=== PATIENT | female | born 1940 | race Caucasian/White ===

== ENCOUNTER 2017-05-26 17:15 | Emergency (ER) | payer MEDICARE, BC ==
[~2017-05-26 17:15] MED LIST: Acetaminophen/HYDROcodone 325-5 MG Tab PO ONE
--- NOTE | 2017-05-26 18:11 | EDM.PDOC ---
ED HPI GENERAL MEDICAL PROBLEM - General Chief Complaint: Lower Extremity Injury/Pain Stated Complaint: left ankle injury Time Seen by Provider: 05/26/17 17:50 Source of Information: Reports: Patient History Limitations: Reports: No Limitations - History of Present Illness INITIAL COMMENTS - FREE TEXT/NARRATIVE: Stepped off the edge of the sidewalk and fell and hurt her left ankle. Swelling note to the lateral malleolus. Some bruising noted to the area. Good sensation noted to toes and foot. No other injury noted. Hasn't been able to bear weight on it since it happened. Onset: Today Location: Reports: Lower Extremity, Left - Related Data Allergies Allergy/AdvReac Type Severity Reaction Status Date / Time ciprofloxacin [From Cipro] Allergy Intermediate Lightheaded Verified 01/21/16 15 :16 ness ciprofloxacin HCl Allergy Lightheaded Verified 01/21/16 15:16 [From Cipro] ness Home Meds: Home Meds Atenolol 12.5 mg PO BID 02/23/15 [History] Levothyroxine [Sythroid] 100 mcg PO DAILY 02/23/15 [History] Lisinopril [Zestril] 10 mg PO BID 02/23/15 [History] NIFEdipine [Nifedipine ER] 30 mg PO DAILY 02/23/15 [History] atorvaSTATin [Lipitor] 10 mg PO DAILY 02/23/15 [History] metFORMIN [Glucophage] 1,000 mg PO BIDMEALS 02/23/15 [History] Aspirin [Adult Low Dose Aspirin EC] 81 mg PO DAILY 01/19/16 [History] Cholecalciferol (Vitamin D3) [Vitamin D] 2,000 unit PO DAILY 01/19/16 [History] Clopidogrel Bisulfate [Clopidogrel] 75 mg PO DAILY 01/19/16 [History] Insulin Detemir [Levemir Flextouch] 14 units SUBCUT QAM 01/19/16 [History] Insulin Detemir [Levemir Flextouch] 16 units SUBCUT QPM 01/19/16 [History] Lisinopril [Lisinopril] 5 mg PO QPM 01/19/16 [History] Lutein/Minerals/Vit A,C & E [Ocuvite] 1 each PO DAILY 01/19/16 [History] Past Medical History Cardiovascular History: Reports: High Cholesterol, Hypertension Endocrine/Metabolic History: Reports: Diabetes, Type II, Hypothyroidism Social & Family History - Tobacco Use Smoking Status *Q: Former Smoker Years of Tobacco use: 30 Used Tobacco, but Quit: Yes Month Tobacco Last Used: april Second Hand Smoke Exposure: No - Alcohol Use Days Per Week of Alcohol Use: 0 - Recreational Drug Use Recreational Drug Use: No - Living Situation & Occupation Living situation: Reports: , with Family Occupation: Retired Review of Systems - Review of Systems Review Of Systems: See Below Constitutional: Reports: No Symptoms Respiratory: Reports: No Symptoms Cardiovascular: Reports: No Symptoms GI/Abdominal: Reports: No Symptoms Musculoskeletal: Reports: Other (left lateral ankle pain) Skin: Reports: Bruising Neurological: Reports: No Symptoms ED EXAM, GENERAL - Physical Exam Exam: See Below Exam Limited By: No Limitations General Appearance: Alert, WD/WN, Moderate Distress Respiratory/Chest: No Respiratory Distress, Lungs Clear Cardiovascular: Regular Rate, Rhythm GI/Abdominal: Normal Bowel Sounds, Soft Extremities: Other (left ankle is swollen and tender. swelling is at the lateral malleous. Good sensation noted distally with good pulse. Able to move toes without difficulty. ) Neurological: Alert, Oriented Skin Exam: Warm, Dry, Intact Course - Orders/Labs/Meds Orders: Active Orders 24 hr Category Date Time Status Ankle Min 3V Lt [CR] Stat Exams 05/26/17 17:24 Taken Departure - Departure Time of Disposition: 18:16 Disposition: Home, Self-Care 01 Condition: Good Clinical Impression: Fracture of distal end of left fibula Qualifiers: Encounter type: initial encounter Fracture type: closed Fracture morphology: unspecified fracture morphology Qualified Code(s): S82.832A - Other fracture of upper and lower end of left fibula, initial encounter for closed fracture - Discharge Information Forms: ED Department Discharge Additional Instructions: Elevate to prevent swelling May walk on it but rest frequently the first week or two Ice to the area if swelling occurs Tylenol or advil as needed for pain If above doesn't help then use [place] 1 tab every 4 hours as needed for pain. Recheck in clinic in 2 weeks with primary care provider Wear boot at all times- Do not get wet. - Problem List & Annotations (1) Fracture of distal end of left fibula SNOMED Code(s): 334761585 Code(s): S82.832A - OTH FRACTURE OF UPPER AND LOWER END OF LEFT FIBULA, INIT Status: Acute Priority: High Qualifiers: Encounter type: initial encounter Fracture type: closed Fracture morphology: unspecified fracture morphology Qualified Code(s): S82.832A - Other fracture of upper and lower end of left fibula, initial encounter for closed fracture - Problem List Review Problem List Initiated/Reviewed/Updated: Yes - My Orders Last 24 Hours: My Active Orders 05/26/17 17:24 Ankle Min 3V Lt [CR] Stat - Assessment/Plan Last 24 Hours: My Active Orders 05/26/17 17:24 Ankle Min 3V Lt [CR] Stat
[2017-05-26] MEDS ORDERED: Take Home: Acetaminophen/HYDROcodone 325-5 MG, 2 Tab Pack PO ONE (18:13)
[2017-05-26 19:45] VITALS: BP 162/72
== END 2017-05-26 18:45 | disposition home or self-care (01) ==
LOC: CC.ED 17:15
DX: S82.832A Other fracture of upper and lower end of left fibula, initial encounter for closed fracture (principal); I10 Essential (primary) hypertension; E78.00 Pure hypercholesterolemia, unspecified; E11.9 Type 2 diabetes mellitus without complications; Z87.891 Personal history of nicotine dependence; Z79.4 Long term (current) use of insulin; Z79.899 Other long term (current) drug therapy; Z88.1 Allergy status to other antibiotic agents; W17.89XA Other fall from one level to another, initial encounter; Y92.480 Sidewalk as the place of occurrence of the external cause
CPT/HCPCS: 73610; 99283; A9270